=== PATIENT | female | born 1965 | race Two or more races ===

== ENCOUNTER 2019-05-16 11:01 | Emergency (ER) | payer MEDICAID ==
[~2019-05-16] VITALS: Ht 165.1 cm; Wt 87.2 kg
--- NOTE | 2019-05-16 11:16 | NUR ---
CAME IN FOR "SWELLING REDNESS AND PAIN AT VAGINAL AREA SINCE YESTERDAY' . TO ER BED 16, HOOKED TO MONITOR, CHANGED TO GOWN, PROVIDED W WARM BLANKET, AWAITING MD AWAD.
--- NOTE | 2019-05-16 11:50 | NUR ---
CHAPERONED DR DAWN FOR PELCIV EXAM
[2019-05-16] MEDS ORDERED: LIDOCAINE HCL/MPF 1% 30 ML VIAL IJ ONE (11:55)
[2019-05-16] MEDS ORDERED: LIDOCAINE HCL/PF 1% 30 ML VIAL TP ONE (12:00)
--- NOTE | 2019-05-16 12:00 | NUR ---
ASSISTED DR DAWN AT BEDSIDE FOR INCISION AND DRAINAGE.
--- NOTE | 2019-05-16 12:48 | NUR ---
Patient discharged to home in stable condition. Written and verbal after care instructions given. Patient verbalizes understanding of instruction.
[2019-05-16 12:50] VITALS: BP 158/101
== END 2019-05-16 12:50 | disposition home or self-care (01) ==
LOC: ER 11:04
DX: N75.1 Abscess of Bartholin's gland (principal); Z98.890 Other specified postprocedural states; Z98.51 Tubal ligation status; Z88.1 Allergy status to other antibiotic agents; Z88.6 Allergy status to analgesic agent
CPT/HCPCS: 56420; 99283; A6403; J3490 ×2